=== PATIENT | female | born 1995 ===

== ENCOUNTER → 2016-09-29 | Outpatient (REF) | payer BC | LOC: M LAB REF 20:31 | PROVIDERS: ATTEND Physician Assistant | DX: J02.9 Acute pharyngitis, unspecified (principal) ==

== ENCOUNTER → 2018-06-07 | Outpatient (REF) | payer BC | LOC: M LAB REF 19:18 | DX: J01.00 Acute maxillary sinusitis, unspecified (principal) | CPT/HCPCS: 87070 ==